=== PATIENT | male | born 1975 | race Caucasian/White ===

== ENCOUNTER 2016-05-31 09:06 | Emergency (ER) | payer OTHER ==
[2016-05-31 09:06] VITALS: BMI 33.6
[2016-05-31] MEDS ORDERED: Sodium Chloride 0.9% 1,000 ML IV ONE (09:48)
--- NOTE | 2016-05-31 10:08 | C.PDOC ---
History Of Present Illness 41 y/o male hx alcohol abuse presents to the ED with complains of upper abdominal pain x1 week with associated nausea. Pt denies vomiting, diarrhea, chest pain, fever or any other complaints. Time Seen by Provider: 05/31/16 09:41 Chief Complaint (Nursing): Abdominal Pain History Per: Patient History/Exam Limitations: no limitations Onset/Duration Of Symptoms: Days Current Symptoms Are (Timing): Still Present Severity: Mild Radiation Of Pain To:: None Quality Of Discomfort: "Pain" Associated Symptoms: Nausea. denies: Fever, Vomiting, Chest Pain Exacerbating Factors: None Alleviating Factors: None Recent travel outside of the [place]: No Past Medical History Reviewed: Historical Data, Nursing Documentation, Vital Signs Vital Signs: Last Vital Signs Temp 98.0 F 05/31/16 12:48 Pulse 79 05/31/16 12:48 Resp 18 05/31/16 12:48 BP 128/90 05/31/16 12:48 Pulse Ox 99 05/31/16 12:48 - Medical History PMH: Hypercholesterolemia Family History: States: Unknown Family Hx - Social History Hx Tobacco Use: No Hx Alcohol Use: Yes Hx Substance Use: Yes ([facility]) - Immunization History Hx Tetanus Toxoid Vaccination: No Hx Influenza Vaccination: No Hx Pneumococcal Vaccination: No Review Of Systems Except As Marked, All Systems Reviewed And Found Negative. Constitutional: Negative for: Fever Cardiovascular: Negative for: Chest Pain Gastrointestinal: Positive for: Nausea, Abdominal Pain. Negative for: Vomiting , Diarrhea Physical Exam - Physical Exam Appears: Non-toxic, No Acute Distress Skin: Warm, Dry, No Rash Head: Atraumatic, Normacephalic Neck: Normal ROM, Supple Chest: Symmetrical Cardiovascular: Rhythm Regular, No Murmur Respiratory: Normal Breath Sounds, No Rales, No Rhonchi, No Wheezing Gastrointestinal/Abdominal: Soft, Tenderness (RUQ), No Guarding, No Rebound Extremity: Bilateral: Atraumatic Neurological/Psych: Oriented x3, Normal Speech ED Course And Treatment - Laboratory Results Result Diagrams: 05/31/16 10:17 05/31/16 10:17 O2 Sat by Pulse Oximetry: 94 (on room air) Pulse Ox Interpretation: Normal - Radiology CXR: Viewed By Me, Read By Radiologist CXR Interpretation: Yes: No Acute Disease Medical Decision Making Medical Decision Making: r/o gastritis vs pud vs gallbladder pathology Plan: labs, CXR, protonix, zofran, US abd, UA, IV fluids 200: US labs unremarkable. abd soft no further ttp. asking fo d/c Disposition - Disposition Referrals: Elder Mandel MD [Staff Provider] - Disposition: HOME/ ROUTINE Disposition Time: 14:01 Condition: STABLE Additional Instructions: please follow up with your doctor. return to er worsening symptoms or concerns Prescriptions: Famotidine [Pepcid] 20 mg PO DAILY #20 tab Print Language: UGANDAN - Clinical Impression Clinical Impression: Abdominal pain - Scribe Statement The provider has reviewed the documentation as recorded by the Halie Reddy Provider Attestation: All medical record entries made by the Halie were at my direction and personally dictated by me. I have reviewed the chart and agree that the record accurately reflects my personal performance of the history, physical exam, medical decision making, and the department course for this patient. I have also personally directed, reviewed, and agree with the discharge instructions and disposition.
[2016-05-31 10:19] LABS: URINE BILIRUBIN NEGATIVE (NEGATIVE); URINE BLOOD NEGATIVE (NEGATIVE); URINE COLOR Straw (YELLOW); URINE GLUCOSE (UA) NORMAL (Normal); URINE KETONE NEGATIVE (NEGATIVE); URINE LEUKOCYTE ESTERASE NEG Leu/uL (Negative); URINE PROTEIN NEGATIVE (NEGATIVE); URINE UROBILINOGEN NORMAL mg/dL (0.2-1.0); WBC URINE < 1 /hpf (0-5)
[2016-05-31 10:22] LABS: BASO # 0.1 K/uL (0.0-0.2); BASO % 0.7 % (0.0-2.0); EOS # 0.1 K/uL (0.0-0.7); EOS % 0.6 % (0.0-4.0); LYMPH # 1.9 K/uL (1.0-4.3); LYMPH % 19.7 % (20.0-40.0); MEAN CELL VOLUME 88.2 fL (80.0-94.0); MEAN CORPUSCULAR HEMOGLOBIN 30.1 pg (27.0-31.0); MEAN CORPUSCULAR HGB CONC 34.1 g/dL (33.0-37.0); MEAN PLATELET VOLUME 8.9 fL (7.2-11.7); MONO # 0.8 K/uL (0.0-0.8); MONO % 7.8 % (0.0-10.0); NRBC % 0.6 % (0.0-2.0); RED CELL DISTRIBUTION WIDTH 13.8 % (11.5-14.5); WHITE BLOOD COUNT 9.6 K/uL (4.8-10.8)
[2016-05-31] MEDS ORDERED: Sodium Chloride 0.9% 1,000 ML ONE (10:26)
[2016-05-31 10:33] LABS: CHLORIDE 101 mmol/L (98-107); POTASSIUM 4.1 mmol/L (3.6-5.2); SODIUM 142 mmol/L (132-148)
[2016-05-31 10:35] LABS: GFR AFRICAN-AMERICAN > 60
[2016-05-31 10:36] LABS: ALB/GLOB RATIO 1.2 (1.0-2.1); ALKALINE PHOSPHATASE 76 U/L (38-126); ALT/SGPT 31 U/L (21-72); AST/SGOT 21 U/L (17-59); BILIRUBIN,DIRECT 0.3 mg/dL (0.0-0.4); BILIRUBIN,TOTAL 0.3 mg/dL (0.2-1.3); BLOOD UREA NITROGEN 11 mg/dL (9-20); CALCIUM 9.3 mg/dl (8.6-10.4); CARBON DIOXIDE 28 mmol/L (22-30); GLUCOSE,RANDOM 102 mg/dL (75-110); TOTAL PROTEIN 8.2 g/dL (6.3-8.3)
--- NOTE | 2016-05-31 11:04 | RAD ---
PROCEDURE: CHEST RADIOGRAPH, 1 VIEW Technique: Single view portable semi erect @ 09:50. HISTORY: abd pain COMPARISON: 03/22/2013. FINDINGS: LUNGS: Clear. PLEURA: No pneumothorax or pleural fluid seen. CARDIOVASCULAR: Normal. OSSEOUS STRUCTURES: No significant abnormalities. VISUALIZED UPPER ABDOMEN: Normal. OTHER FINDINGS: None. IMPRESSION: No active disease. No acute/significant interval changes.
[2016-05-31 12:49] VITALS: RESP 18
--- NOTE | 2016-05-31 13:53 | US ---
HISTORY: Abdominal pain. COMPARISON: None. TECHNIQUE: Sonographic evaluation of the abdomen. FINDINGS: LIVER: Measures 17.4 cm. Hepatopedal blood flow. Fatty infiltration manifest ultrasonographically as increased echogenicity of the liver parenchyma. No mass. No intrahepatic bile duct dilatation. GALLBLADDER: Unremarkable. No gallstones. COMMON BILE DUCT: Measures 3.3 mm. No stones. No dilatation. PANCREAS: Unremarkable as visualized. No mass. No ductal dilatation. RIGHT KIDNEY: Measures 5.5 x 10.9cm. Normal echogenicity. No calculus, mass, or hydronephrosis. LEFT KIDNEY: Measures 6.7 x 12.2cm. Normal echogenicity. No calculus, mass, or hydronephrosis. SPLEEN: Normal in size and contour. No mass. AORTA: No aneurysmal dilatation. IVC: Unremarkable. OTHER FINDINGS: None. IMPRESSION: Hepatic steatosis. No focal masses. No intrahepatic bile duct dilatation or perihepatic ascites. No acute findings related to/accounting for the clinical presentation.
[2016-05-31 14:28] VITALS: BP 128/91; PULSE 80; TEMP 98.5; O2SAT 100
== END 2016-05-31 14:28 | disposition home or self-care (01) ==
LOC: C.ER 09:06
DX: R10.10 Upper abdominal pain, unspecified (principal)
CPT/HCPCS: 71010; 76700; 80053; 81001; 82248; 83690; 85025; 85610; 85730; 96361; 96374; 96375; 99285; C9113; J2405; J7040